=== PATIENT | male | born 1980 | race Caucasian/White ===

== ENCOUNTER 2016-06-14 17:35 | Emergency (ER) | payer SELFPAY ==
[~2016-06-14] VITALS: Ht 175.3 cm; Wt 88.0 kg
[2016-06-14 19:23] VITALS: BP 151/88
== END 2016-06-14 19:23 | disposition home or self-care (01) ==
LOC: ED 17:35
DX: M54.2 Cervicalgia (principal); M54.5 Low back pain
CPT/HCPCS: J1885